=== PATIENT | female | born 1975 | race Caucasian/White ===

== ENCOUNTER 2017-10-09 02:27 | Emergency (ER) | payer OTHER ==
[~2017-10-09] VITALS: Ht 160 cm; Wt 70.0 kg
[~2017-10-09 02:27] MED LIST: GABA100C4 PO; NALT50TA PO; PRIS100T PO
[2017-10-09 02:31] VITALS: BP 129/98; PULSE 78; RESP 16; TEMP 98.8; O2SAT 100
[2017-10-09] MEDS ORDERED: LIDOCAINE VISCOUS 2% SOLN 15 ML UDC OTHER ONE (03:45)
[2017-10-09] MEDS ORDERED: ALUMINUM/MAGNESIUM/SIMETH 30 ML CUP PO ONE ×2 (03:45)
[2017-10-09] MEDS ORDERED: PANTOPRAZOLE SODIUM 40 MG VIAL IV PUSH ONE (03:45)
[2017-10-09 04:35] LABS: AUTOMATED NEUTROPHIL # 5.9 TH/MM3 (1.8-7.7); BASOPHIL # 0.1 TH/MM3 (0-0.2); BASOPHIL % 0.5 % (0.0-2.0); EOSINOPHIL # 0.4 TH/MM3 (0-0.4); EOSINOPHIL % 4.3 % (0.0-4.0); HEMATOCRIT 40.2 % (35.0-46.0); HEMO FLAGS DIFF FINAL; LYMPH % 28.4 % (9.0-44.0); LYMPHOCYTE # 2.8 TH/MM3 (1.0-4.8); MEAN CELL VOLUME 91.3 FL (80.0-100.0); MEAN CORPUSCULAR HEMOGLOBIN 30.2 PG (27.0-34.0); MEAN CORPUSCULAR HGB CONC 33.1 % (32.0-36.0); MONO % 7.8 % (0.0-8.0); PLATELET COUNT 203 TH/MM3 (150-450); RED BLOOD COUNT 4.41 MIL/MM3 (4.00-5.30); RED CELL DISTRIBUTION WIDTH 13.2 % (11.6-17.2)
[2017-10-09 04:37] LABS: ALT (GPT) 18 U/L (10-53); ANION GAP 5 MEQ/L (5-15); AST (GOT) 12 U/L (15-37); BLOOD UREA NITROGEN 13 MG/DL (7-18); CHLORIDE 106 MEQ/L (98-107); GLOMERULAR FILTRATION RATE 79 ML/MIN (>89); POTASSIUM 4.1 MEQ/L (3.5-5.1); SODIUM (NA) 139 MEQ/L (136-145)
[2017-10-09 04:39] LABS: ALKALINE PHOSPHATASE 52 U/L (45-117); TOTAL BILIRUBIN ADULT 0.2 MG/DL (0.2-1.0)
[2017-10-09] MEDS ORDERED: KETOROLAC TROMETHAMINE 30 MG/ML (IVP) VIAL IV PUSH ONE (05:00)
--- NOTE | 2017-10-09 05:34 | PD ---
HPI Chief Complaint: Abdominal Pain Time Seen by Provider: 02:53 Travel History International Travel<30 days: No Contact w/Intl Traveler<30days: No Traveled to known affect area: No History of Present Illness HPI Patient is a 42-year-old female who is reporting for the last few days she has had severe abdominal pain epigastric pain in the periumbilical epigastric area. She took Tums without relief she took Mylanta [id number] without relief and she still has severe pain epigastric. She has no other past medical history. She is not vomiting actively she is standing holding her right flank area and she reports only pain in her epigastrium without radiation patient is not seen another doctor for this the pain is burning and sharp in her epigastrium area. It is been going on for 2 days. [facility] Past Medical History Medical History: Denies Significant Hx ?: Not Past Surgical History Surgical History: No Previous Surgery Social History Alcohol Use: Yes Tobacco Use: No Substance Use: No Allergies-Medications (Allergen,Severity, Reaction): Coded Allergies: No Known Allergies (Verified , 04/26/15) Reported Meds & Prescriptions Reported Meds & Active Scripts Active Review of Systems Except as stated in HPI: all other systems reviewed are Neg Gastrointestinal: Positive: Abdominal Pain Physical Exam Narrative GENERAL: Patient is holding her right flank leaning over but reporting that she is having epigastric pain nontoxic-appearing no signs of sepsis alert oriented 3. SKIN: Warm and dry. HEAD: Atraumatic. Normocephalic. EYES: Pupils equal and round. No scleral icterus. No injection or drainage. ENT: No nasal bleeding or discharge. Mucous membranes pink and moist. NECK: Trachea midline. No JVD. CARDIOVASCULAR: Regular rate and rhythm. RESPIRATORY: No accessory muscle use. Clear to auscultation. Breath sounds equal bilaterally. GASTROINTESTINAL: Abdomen tenderness in the epigastrium area with percussion and palpation soft, the other quadrants are nontender , nondistended. Hepatic and splenic margins not palpable. MUSCULOSKELETAL: Extremities without clubbing, cyanosis, or edema. No obvious deformities. NEUROLOGICAL: Awake and alert. No obvious cranial nerve deficits. Motor grossly within normal limits. Five out of 5 muscle strength in the arms and legs. Normal speech. PSYCHIATRIC: Appropriate mood and affect; insight and judgment normal. Data Data Last Documented VS Vital Signs Date Time Temp Pulse Resp B/P (MAP) Pulse Ox O2 Delivery O2 Flow Rate FiO2 10/09/17 05:36 10/09/17 02:31 98.8 78 16 100 Room Air Orders Orders Lidocaine 2% Viscous (Xylocaine 2% Visco (10/09/17 03:45) Al-Mag Hy-Si 40-40-4 Mg/Ml Liq (Mag-Al P (10/09/17 03:45) Al-Mag Hy-Si 40-40-4 Mg/Ml Liq (Mag-Al P (10/09/17 03:45) Pantoprazole Inj (Protonix Inj) (10/09/17 03:45) Comprehensive Metabolic Panel (10/09/17 03:43) Complete Blood Count With Diff (10/09/17 03:43) Lipase (10/09/17 03:43) Ketorolac Inj (Toradol Inj) (10/09/17 05:00) Labs Laboratory Tests Test 10/09/17 04:08 White Blood Count 10.0 TH/MM3 Red Blood Count 4.41 MIL/MM3 Hemoglobin 13.3 GM/DL Hematocrit 40.2 % Mean Corpuscular Volume 91.3 FL Mean Corpuscular Hemoglobin 30.2 PG Mean Corpuscular Hemoglobin Concent 33.1 % Red Cell Distribution Width 13.2 % Platelet Count 203 TH/MM3 Mean Platelet Volume 8.6 FL Neutrophils (%) (Auto) 59.0 % Lymphocytes (%) (Auto) 28.4 % Monocytes (%) (Auto) 7.8 % Eosinophils (%) (Auto) 4.3 % Basophils (%) (Auto) 0.5 % Neutrophils # (Auto) 5.9 TH/MM3 Lymphocytes # (Auto) 2.8 TH/MM3 Monocytes # (Auto) 0.8 TH/MM3 Eosinophils # (Auto) 0.4 TH/MM3 Basophils # (Auto) 0.1 TH/MM3 CBC Comment DIFF FINAL Differential Comment Blood Urea Nitrogen 13 MG/DL Creatinine 0.79 MG/DL Random Glucose 100 MG/DL Total Protein 7.4 GM/DL Albumin 4.1 GM/DL Calcium Level 9.0 MG/DL Alkaline Phosphatase 52 U/L Aspartate Amino Transf (AST/SGOT) 12 U/L Alanine Aminotransferase (ALT/SGPT) 18 U/L Total Bilirubin 0.2 MG/DL Sodium Level 139 MEQ/L Potassium Level 4.1 MEQ/L Chloride Level 106 MEQ/L Carbon Dioxide Level 28.0 MEQ/L Anion Gap 5 MEQ/L Estimat Glomerular Filtration Rate 79 ML/MIN Lipase 121 U/L MDM Medical Decision Making Medical Screen Exam Complete: Yes Emergency Medical Condition: Yes Differential Diagnosis gerd vs pancreatitis vs viral gastritis , vs GB disease Narrative Course Patient is given GI cocktail missed viscous lidocaine and Maalox by mouth to see if pain is gastric in nature and epigastric. Also order an IV and Protonix as well to see if all her pain is relieved by antacids and topical lidocaine. While I and attending to all the other patients including critical cardiac patient and her comes out and starts demanding that she still in pain and she needs to be seen. I explained we are all in a critical cardiac case this does not seem to assuaged their anger and they demand talked to the charge nurse. Apparently to another nurse they had complained that the nurses were all in one room and the doctor was sitting around doing nothing. I ordered Toradol and by the time I cannot of another critical case they had walked out. Patient left with her IV in her arm. Diagnosis Primary Impression: Abdominal pain Disposition: 07 AGAINST MEDICAL ADVICE Justo Marte MD Oct 09, 2017 05:34
== END 2017-10-09 05:51 | disposition left against medical advice (07) ==
LOC: NEPC 02:27
DX: R10.13 Epigastric pain (principal); R10.33 Periumbilical pain
CPT/HCPCS: 80053; 83690; 85025; 96374; 96375; 99284; C9113